=== PATIENT | male | born 1980 | race Caucasian/White ===

== ENCOUNTER 2022-11-08 09:15 | Day surgery (SDC) | payer BC, SELFPAY ==
[2022-11-06 14:11] VITALS: BMI 23.0
[2022-11-08] VITALS (10 sets, daily range): BP systolic 120–144; BP diastolic 74–88; PULSE 78–98; RESP 12–812; TEMP 36.2–36.9; O2SAT 90–100; BMI 23.0
--- NOTE | 2022-11-08 | DI.RAD.S_ITS ---
PROCEDURE: XR LUMBAR SPINE 2-3V INDICATIONS: MICRODISCECTOMY L3-4, L4-5 TECHNIQUE: 2 fluoroscopic views of the lumbar spine were acquired. COMPARISON: None. FINDINGS: Fluoroscopic guidance utilized for a micro discectomy. Surgical hardware projects posterior to the L4-5 disc space and L4 vertebrae. IMPRESSION: Fluoroscopic guidance utilized for a micro discectomy. Dictated by: Yasmany Martínez M.D. on 11/08/2022 at 13:28 Approved by: Yasmany Martínez M.D. on 11/08/2022 at 13:29
[2022-11-08] MEDS: LACTATED RINGERS 1,000 ML 42 ML IV ×2 (10:01→12:39)
--- NOTE | 2022-11-08 10:55 | PM.PREOP ---
Pre-operative Note Interval Note History & Physical reviewed/Exam performed by Physician: Yes Changes to H&P: No
[2022-11-08] MEDS: CEFAZOLIN 2 GM/100 ML PREMIX 100 ML IV (12:00)
--- NOTE | 2022-11-08 12:10 | SUR.OPER ---
Addendum entered by Dayo Moreno R.N. 11/08/22 12:28: Gel pad placed between heel for protection Original Note: Prone on spine table, head in foam head support, padded chest and pelvic supports, gel pad at knees, lower legs supported by pillows; nipples, genitalia and toes free of pressure, arms secured on foam padded arm boards at <90 degrees abduction. Tape over blanket at thigh secured to table.
[2022-11-08] MEDS: BUPIVACAINE 0.25% (PF) 30 ML, EPINEPHrine 0.15 MG INJ (12:14)
--- NOTE | 2022-11-08 13:02 | P.OP_ITS ---
Operative Date/Time/Diagnoses Date of procedure: 11/08/22 Time of procedure: 11:00 Pre-op diagnosis: 1. L3-4, L4-5 disc herniation 2. Lumbar radiculopathy 3. Epidural lipomatosis Post-op diagnosis: same Procedure & Clinicians Procedure: 1. L4-5 left microdiscectomy 2. L3-4 left hemilaminectomy 3. Utilization of microsurgical technique and operating microscope Same procedure as scheduled: Yes Indications: Patient has been having worsening back pain and worsening lumbar radiculopathy. Patient failed multiple conservative management with worsening pain weakness and numbness in his lower extremity. Patient has been having difficulty performing activity of daily living. After discussing risks benefits of treatment options, patient elected proceed with surgery. Surgeon: Coty Collado [employer] Ad[employer]: Trena Kate Click Yes if Unassisted: No Anesthesia Type: General Operative Notes Closure Type: primary Specimen(s): none sent Estimated Blood Loss (mL): 3 Blood products transfused: none Procedure in detail: Patient was seen in the preoperative area. Risks and benefits of the surgery was discussed with the patient. Informed consent was obtained from the patient and placed in the chart. Surgical site was marked. Patient was taken to the operative room. General anesthesia was administered. Prophylactic antibiotic was given to the patient less than 30 min before the incision was made. Patient was placed into a prone position on the Eliu table. Patient's back was then prepped and draped in the sterile fashion. Time-out was performed at this time. Using AP and lateral C-arm imaging the interval between L3-4 L4-5 was identified and marked on patient's back. A 1 inch incision 1 in from midline was made on the left side. The fascia was incised in line with skin incision. Globus MARS retractors was placed inside the incision and docked onto the L4 lamina. Using microsurgical technique and operating microscope, a L4 laminotomy was performed using a Kerrison rongeur. Liagamentum flavum was resected at the site of the laminotomy. The disc space at L4-5 was identified. Microdiscectomy was performed by incising the annulus with #11 blade. Microcurettes and pituitary was used to removed herniated disc fragments of disc from the epidural space. Patient was found have a large herniated disc fragment which was able to be removed using a pituitary and micro curette. After the microdiskectomy at L4-5 was completed, the area medial lateral superior and inferior to the area of the microdiskectomy was inspected and explored using a micro curette. No other impinging structure was identified. The MARs retractor was then redirected over the L3-4 level under x-ray guidance and docked on the L3 lamina. Using microsurgical technique and operating microscope, a L3 hemilaminectomy was performed using a Kerrison rongeur. Patient was found to have significant amount of epidural lipomatosis which was contributing to his spinal stenosis. The lipomatosis was resected using pituitary micro curette to further decompress the epidural space. Liagamentum flavum was resected at the site of the hemilaminectomy. After the hemilaminectomy at L3-4 was completed, the area medial lateral superior and inferior to the area of the microdiskectomy was inspected and explored using a micro curette. No other impinging structure was identified. The wound was then irrigated with sterile normal saline. 40 mg Depo-Medrol was placed into the epidural space. The deep fascia was closed with 1-0 Vicryl. The subcutaneous tissue was closed with 2-0 Vicryl. The skin was closed with 4-0 Monocryl. Patient tolerated the procedure well. There were no complications. Patient was transferred recovery room in stable condition. Patient will be discharged once criteria is met. Complications: none Post-operative Condition: stable Disposition: PACU Plan for aftercare: Discharge to home
[2022-11-08] MEDS: ONDANSETRON 4 MG/2 ML INJ IV (13:30)
[2022-11-08] MEDS: hydrOXYzine 50 MG/ML INJ 25 MG IM (13:30)
[2022-11-08] MEDS: OXYCODONE IR 5 MG TABLET PO (13:30)
== END 2022-11-08 14:05 | disposition home or self-care (01) ==
PROVIDERS: PCP Nurse Practitioner Family; Referring Provider Nurse Practitioner Family; Visit Provider Orthopaedic Surgery Orthopaedic Surgery of the Spine
PROC: (CPT 63030; principal; 2022-11-08 10:45)
DX: M51.16 Intervertebral disc disorders with radiculopathy, lumbar region (principal); E11.9 Type 2 diabetes mellitus without complications; F17.200 Nicotine dependence, unspecified, uncomplicated; Z79.4 Long term (current) use of insulin
CPT/HCPCS: 63030; 63035; 72100; 76000; J0171; J0690; J2250; J2405; J2704; J2920; J3010; J3410